=== PATIENT | female | born 1970 | race African-American/Black ===

== ENCOUNTER 2024-10-19 18:36 | Emergency (ER) | payer OTHER ==
[~2024-10-19] VITALS: Ht 167.6 cm; Wt 98.0 kg
[2024-10-19] MEDS ORDERED: PREDNISONE20 M1 PO (22:08)
[2024-10-19] MEDS ORDERED: methylPREDNISolone sod succ 125 MG VIAL IM ONE (22:10)
== END 2024-10-19 22:20 | disposition home or self-care (01) ==
LOC: ED 18:36
DX: G51.0 Bell's palsy (principal); Z91.09 Other allergy status, other than to drugs and biological substances